=== PATIENT | female | born 1995 | race Caucasian/White ===

== ENCOUNTER 2017-04-06 22:33 | Emergency (ER) | payer MEDICAID, OTHER ==
[2017-04-06 22:44] VITALS: BP 129/85; PULSE 98; RESP 20; TEMP 98.1; O2SAT 98
[2017-04-06] MEDS ORDERED: Oxymetazoline 0.05% Nasal Spray (30 ml) NS STA (22:55)
--- NOTE | 2017-04-06 22:59 | C.PDOC ---
History Of Present Illness 21 year old female presents to ED with complaints of nose bleed tonight from right nare after blowing her nose. She states she has been having frequent nosebleeds for the past month always from the same side. She states when the bleeding starts she grabs tissue and it soaks. She does not apply pressure to the area. Denies any headache, vision changes, dizziness, nose injury, bleeding disorders. Time Seen by Provider: 04/06/17 22:46 Chief Complaint (Nursing): ENT Problem History Per: Patient History/Exam Limitations: None Onset/Duration Of Symptoms: Intermittent Episodes Current Symptoms Are (Timing): Gone Symptoms Have Been: Episodic Recent Aspirin Use: No Past Medical History Reviewed: Historical Data, Nursing Documentation, Vital Signs Vital Signs: Last Vital Signs Temp 98.1 F 04/06/17 22:35 Pulse 98 H 04/06/17 22:35 Resp 20 04/06/17 22:35 BP 129/85 04/06/17 22:35 Pulse Ox 98 04/06/17 22:35 - Medical History PMH: No Chronic Diseases Surgical History: No Surg Hx Family History: States: Unknown Family Hx - Social History Hx Alcohol Use: No Hx Substance Use: No Review Of Systems Except As Marked, All Systems Reviewed And Found Negative. ENT: Positive for: Other (Nose bleed ) Physical Exam - Physical Exam Appears: Well, Non-toxic, No Acute Distress Skin: Warm, Dry, No Diaphoretic, No Pale Head: Atraumatic, Normacephalic Eye(s): bilateral: Normal Inspection, PERRL, EOMI Nose: No Epistaxis, No Septal Hematoma, Other (dry blood in right nare, area looks irritated and inflamed ) Oral Mucosa: Moist Throat: Normal Neck: Normal ROM Chest: Symmetrical Extremity: Bilateral: Atraumatic, Normal Color And Temperature, Normal ROM Neurological/Psych: Oriented x3, Normal Speech ED Course And Treatment O2 Sat by Pulse Oximetry: 98 Medical Decision Making Medical Decision Making: Patient with complaints of frequent nosebleeds. No active bleeding in ED. Area looks inflamed and irritated. Afrin spray applied. Patient educated on care of nosebleed and instructed to follow up with ENT if it persists. Disposition Counseled Patient/Family Regarding: Need For Followup, Rx Given - Disposition Referrals: Bart Reyna MD [Staff Provider] - Disposition: HOME/ ROUTINE Disposition Time: 22:56 Condition: STABLE Additional Instructions: For nose bleed: Sit down and firmly pinch the soft part of your nose, just above your nostrils, for at least 10-15 minutes lean forward and breathe through your mouth, this will drain blood down your nose instead of down the back of your throat place an ice pack or bag of frozen vegetables covered by a towel on the bridge of your nose You can use spray once daily for no more than 3 days Follow up with ENT Dr Reyna for further care if bleeding continues or return to emergency room Instructions: Nosebleed (ED) - POA Present On Arrival: None - Clinical Impression Clinical Impression: Epistaxis
== END 2017-04-06 23:34 | disposition home or self-care (01) ==
LOC: C.ER 22:33
DX: R04.0 Epistaxis (principal)